=== PATIENT | male | born 1975 | race Hispanic/Latino ===

== ENCOUNTER 2021-10-25 17:40 | Inpatient (IN) | payer SELFPAY ==
[~2021-10-25] VITALS: Ht 188 cm; Wt 83.9 kg
[2021-10-25] MEDS ORDERED: LIDOCAINE VISC 2% SOLN 15 ML UDC PO ONE (18:45)
[2021-10-25] MEDS ORDERED: MAGNESIUM/ALUMINUM/SIMETHICONE 30 ML UDC PO ONE (18:45)
[2021-10-25] MEDS ORDERED: SODIUM CHLORIDE 0.9% 1000ML 1,000 ML IV ONE (18:45)
[2021-10-25] MEDS ORDERED: BELLADONNA ALK/PHENOBARBITAL 5 ML UDC PO ONE (18:45)
[2021-10-25 19:03] LABS: BASOPHILS # (AUTO) 0.1 (0.0-0.1); BASOPHILS % 0.5 % (0.0-1.0); EOSINOPHILS # (AUTO) 0.4 (0.0-0.4); EOSINOPHILS % 3.2 % (0.0-6.0); HEMATOCRIT 50.1 % (38.2-49.6); HEMOGLOBIN 16.8 g/dL (14.0-18.0); LYMPHOCYTES % 17.5 % (18.0-39.1); MEAN CORPUSCULAR HEMOGLOBIN 30.1 pg (28-32); MEAN CORPUSCULAR HGB CONC 33.5 g/dL (31-35); MEAN CORPUSCULAR VOLUME 89.8 fL (81-99); MONOCYTES # (AUTO) 0.7 (0.2-0.8); MONOCYTES % 6.1 % (4.4-11.3); NEUTROPHILS # (AUTO) 8.1 (2.1-6.9); NEUTROPHILS % 72.3 % (38.7-80.0); PLATELET COUNT 269 x10e3/uL (140-360); RED BLOOD COUNT 5.58 x10e6/uL (4.3-5.7); RED CELL DISTRIBUTION WIDTH 11.8 % (11.7-14.4)
[2021-10-25 19:25] LABS: ALBUMIN 3.9 g/dL (3.5-5.0); ALBUMIN/GLOBULIN RATIO 0.9 (0.8-2.0); ANION GAP 13.8 mmol/L (8-16); CALCIUM 9.6 mg/dL (8.4-10.2); CREATININE, SERUM 1.14 mg/dL (0.72-1.25); POTASSIUM 3.8 mmol/L (3.5-5.1)
[2021-10-25] MEDS ORDERED: HEPARIN 25,000 UNIT 25,000 UNIT in DEXTROSE 5% 250ML 250 ML IV SCH (21:45)
[2021-10-25] MEDS ORDERED: HEPARIN SOD (PORCINE) 5,000 UNIT/ML VIAL IV ONE (21:45)
[2021-10-25] MEDS ORDERED: HEPARIN 25,000 UNIT DRIP IV ONE (22:12)
[2021-10-25 22:13] LABS: INR 0.95; PROTHROMBIN TIME 13.5 seconds (11.9-14.5)
[2021-10-25] MEDS ORDERED: SODIUM CHLORIDE FLUSH 10 ML SYR INJ PRN (22:15)
[2021-10-25 22:40] LABS: CREATINE KINASE MB 1.5 ng/mL (0-5.0)
[2021-10-25] MEDS ORDERED: IOPAMIDOL 370 MG/ML 100 ML INFUS..BTL INJ ONE (22:43)
[2021-10-26] VITALS (9 sets, daily range): BP systolic 131–150; BP diastolic 79–90
[2021-10-26 06:57] LABS: BASOPHILS # (AUTO) 0.1 (0.0-0.1); BASOPHILS % 0.7 % (0.0-1.0); EOSINOPHILS # (AUTO) 0.3 (0.0-0.4); EOSINOPHILS % 3.4 % (0.0-6.0); HEMATOCRIT 45.3 % (38.2-49.6); HEMOGLOBIN 15.4 g/dL (14.0-18.0); LYMPHOCYTES # (AUTO) 2.6 (1.0-3.2); LYMPHOCYTES % 26.5 % (18.0-39.1); MEAN CORPUSCULAR HEMOGLOBIN 30.5 pg (28-32); MEAN CORPUSCULAR VOLUME 89.7 fL (81-99); MONOCYTES # (AUTO) 0.6 (0.2-0.8); MONOCYTES % 6.3 % (4.4-11.3); NEUTROPHILS % 62.8 % (38.7-80.0); PLATELET COUNT 220 x10e3/uL (140-360); RED BLOOD COUNT 5.05 x10e6/uL (4.3-5.7); RED CELL DISTRIBUTION WIDTH 11.7 % (11.7-14.4)
[2021-10-26 07:19] LABS: ALBUMIN 3.6 g/dL (3.5-5.0); ANION GAP 12.9 mmol/L (8-16); CALCIUM 8.6 mg/dL (8.4-10.2); POTASSIUM 3.9 mmol/L (3.5-5.1)
[2021-10-26 07:46] LABS: CREATINE KINASE 70 IU/L (30-200)
[2021-10-26] MEDS: ASPIRIN 81 MG ENTERIC COATED PO SCH (08:01)
[2021-10-26] MEDS: ONDANSETRON HCL INJ 2MG/ML 2ML 2 MG/ML VIAL IV PRN ×2 (08:01→19:57)
[2021-10-26] MEDS: Morphine 4mg Syringe 4 MG/ML INJ IV PRN ×2 (08:01→19:57)
[2021-10-26] MEDS ORDERED: ENOXAPARIN INJ 80 MG/0.8 ML SYR SC SCH ×2 (15:00→21:00)
[2021-10-26 15:14] LABS: CREATINE KINASE 62 IU/L (30-200)
[2021-10-26] MEDS: ENOXAPARIN INJ 80 MG/0.8 ML SYR SC SCH (16:47)
[2021-10-26] MEDS ORDERED: Morphine 4mg Syringe 4 MG/ML INJ IV ONE (21:45)
[2021-10-26] MEDS: WARFARIN SOD 5 MG TAB PO SCH (22:02)
[2021-10-27 01:01] VITALS: BP 131/85
[2021-10-27 04:16] VITALS: BP 134/85
[2021-10-27] MEDS: ENOXAPARIN INJ 80 MG/0.8 ML SYR SC SCH ×2 (05:03→16:04)
[2021-10-27 05:11] LABS: INR 0.9
[2021-10-27 07:30] VITALS: BP 142/95
[2021-10-27 07:39] VITALS: BP 142/95
[2021-10-27] MEDS: ASPIRIN 81 MG ENTERIC COATED PO SCH (08:15)
[2021-10-27] MEDS ORDERED: ELIQUIS5 MG PO (15:29)
[2021-10-27] MEDS: WARFARIN SOD 5 MG TAB PO SCH (16:04)
[2021-10-27] MEDS ORDERED: WARFARIN SOD 5 MG TAB PO SCH (17:00)
== END 2021-10-27 16:05 | disposition home or self-care (01) | DRG 176 ==
LOC: ER 17:49 → ERHOLD 22:11 → IMCU 10-26 02:04
DX: I26.99 Other pulmonary embolism without acute cor pulmonale (principal); R07.89 Other chest pain; K21.9 Gastro-esophageal reflux disease without esophagitis; Z20.822 Contact with and (suspected) exposure to COVID-19
CPT/HCPCS: 36415; 71045; 71260; 80053; 82550; 82553; 84484; 85025; 85230; 85305; 85306; 85379; 85597; 85610; 85613; 85730; 87040; 93005; 93306; 93970; 94799; 99251; 99284; J1644; J1650; J2270; J2405; J7030; Q9967; U0002